=== PATIENT | female | born 1985 | race Caucasian/White ===

== ENCOUNTER → 2017-09-03 | Outpatient (CLI) | payer OTHER ==
[~2017-09-03] VITALS: Ht 162.6 cm; Wt 92.6 kg
[~2017-09-03] MED LIST: DILAUDID2 MG PO; MOTRIN800 MG PO; PRENATAL TABLE1 EAC3 PO; TYLENOL EXTRA500 MG PO
[2017-09-03 10:22] VITALS: BP 127/69
== END | disposition home or self-care (01) ==
LOC: IVINF 10:00
DX: Z34.83 Encounter for supervision of other normal pregnancy, third trimester (principal); Z3A.28 28 weeks gestation of pregnancy; Z67.41 Type O blood, Rh negative
CPT/HCPCS: 96372; J2790

== ENCOUNTER 2017-11-18 23:31 | Inpatient (IN) | payer OTHER ==
[2017-11-18 23:57] VITALS: BP 127/76
[2017-11-19] VITALS (7 sets, daily range): BP systolic 123–141; BP diastolic 66–84
[2017-11-19 00:43] LABS: BASOPHIL (%) 0.2 % (0-1); EOSINOPHIL (%) 0.2 % (0-5); HEMATOCRIT 31.1 % (36.0-46.0); HEMOGLOBIN 10.7 G/DL (11.9-15.5); IMMATURE GRANULOCYTE (%) 0.6 % (0.0-0.7); LYMPHOCYTE (%) 12.6 % (15-42); LYMPHOCYTE COUNT 1.7 K/uL (1.0-2.8); MCH 27.4 PG (29.0-34.0); MCHC 34.4 G/DL (30.0-36.0); MCV 79.7 FL (83-99); MONOCYTE (%) 5.8 % (3-12); MONOCYTE COUNT 0.8 K/uL (0-0.8); NEUTROPHIL (%) 80.6 % (45-76); NEUTROPHIL COUNT 10.5 K/uL (1.8-6.4); PLATELET COUNT 272 K/uL (156-360); RBC DIS.WIDTH-CV 13.6 % (11.8-14.6); RBC DIS.WIDTH-SD 38.8 % (39-53); WHITE BLOOD COUNT 13.1 K/uL (4.1-10.2)
[2017-11-19 00:52] LABS: AMPHETAMINE NEGATIVE (500 ng/mL); BARBITURATES NEGATIVE (200 ng/mL); BENZODIAZEPINES NEGATIVE (150 ng/mL); BUPRENORPHINE NEGATIVE (10 ng/mL); COCAINE NEGATIVE (150 ng/mL); METHADONE NEGATIVE (200 ng/mL); METHAMPHETAMINE NEGATIVE (500 ng/mL); OPIATES (MORPHINE) NEGATIVE (100 ng/mL); OXYCODONE NEGATIVE (100 ng/mL); PHENCYCLIDINE NEGATIVE (25 ng/mL); PROPOXYPHENE NEGATIVE (300 ng/mL); THC CANNABINOIDS NEGATIVE (50 ng/mL); TRICYCLIC ANTIDEPRESSANTS NEGATIVE (300 ng/mL)
[2017-11-20 07:55] VITALS: BP 132/79
== END 2017-11-20 15:05 | disposition home or self-care (01) | DRG 775 ==
LOC: LDRP-OP 23:31 → 2WEST 23:32 → LDRP-OP 12-21 10:03
PROVIDERS: Midwife
PROC: 10907ZC Drainage of Amniotic Fluid, Therapeutic from Products of Conception, Via Natural or Artificial Opening (ICD-10-PCS; 2017-11-18)
PROC: 10E0XZZ Delivery of Products of Conception, External Approach (ICD-10-PCS; principal; 2017-11-19)
DX: O62.3 Precipitate labor (principal); O36.0931 Maternal care for other rhesus isoimmunization, third trimester, fetus 1; O99.214 Obesity complicating childbirth; E66.9 Obesity, unspecified; Z37.0 Single live birth; Z3A.39 39 weeks gestation of pregnancy; L30.9 Dermatitis, unspecified; O99.72 Diseases of the skin and subcutaneous tissue complicating childbirth; O77.0 Labor and delivery complicated by meconium in amniotic fluid; O36.63X1 Maternal care for excessive fetal growth, third trimester, fetus 1; O75.89 Other specified complications of labor and delivery; Z68.39 Body mass index [BMI] 39.0-39.9, adult
CPT/HCPCS: 83030; 85025; 86850; 86900; 86901; G0378; J2790